=== PATIENT | male | born 1940 | race Two or more races ===

== ENCOUNTER 2025-08-22 20:50 | Inpatient (IN) | payer MEDICARE, OTHER ==
[~2025-08-22] VITALS: Ht 157.5 cm; Wt 66.2 kg
[2025-08-22 22:00] LABS: PLATELET COUNT (AUTO) 196 K/uL (152-348); RED BLOOD CELL COUNT(AUTO) 4.47 MIL/uL (4.06-5.63); RED CELL DISTRIBUTION WIDTH 13.7 % (12.1-16.2); WHITE BLOOD COUNT (AUTO) 6.2 K/uL (3.6-10.2)
[2025-08-22 22:08] LABS: CREATININE 1.1 mg/dL (0.6-1.3); SODIUM SERUM 145 mmol/L (136-145); UREA NITROGEN, BLOOD 23 mg/dL (7-18)
[2025-08-22 22:14] LABS: ASPARTATE AMINOTRANSFERASE 17 U/L (15-37); TOTAL PROTEIN, SERUM 7.5 g/dL (6.4-8.2)
[2025-08-22 23:00] VITALS: O2SAT 94
[2025-08-22 23:00] LABS: ABG BASE EXCESS 0.2 mmol/L (-2.0-3.0); ABG HCO3 24.6 mmol/L (21.0-28.0); ABG PCO2 39.2 mmHg (35.0-48.0); ABG PH 7.415 (7.350-7.450); ABG PO2 64.2 mmHg (83.0-108.0); ABG SITE LEFT RADIAL; ABG TOTAL HEMOGLOBIN 14.8 G/dL (13.5-17.5); AaDO2 92.9 mmHg; FIO2 21.0 %
[2025-08-22 23:15] VITALS: O2SAT 95
[2025-08-22] MEDS ORDERED: ALBUTEROL SULFATE 2.5 MG/3 ML NEBU ONE (23:32)
[2025-08-22] MEDS: ALBUTEROL SULFATE 2.5 MG/3 ML NEBU NEB ONE (23:37)
[2025-08-23] MEDS ORDERED: MAGNESIUM HYDROXIDE 30 ML LIQUID UDC PO PRN (01:30)
[2025-08-23] MEDS ORDERED: IPRATROPIUM BROMIDE 0.5 MG/2.5 ML NEBU NEB PRN (01:30)
[2025-08-23] MEDS ORDERED: ONDANSETRON 4 MG/2 ML VIAL IV PRN (01:30)
[2025-08-23] MEDS ORDERED: REMEDY ESSENTIAL ZINC PASTE 113 GM TP PRN (01:30)
[2025-08-23] MEDS ORDERED: ACETAMINOPHEN 325 MG TABLET PO PRN (01:30)
[2025-08-23] MEDS ORDERED: ALBUTEROL SULFATE 2.5 MG/ 0.5 ML NEBU NEB PRN (01:30)
[2025-08-23 03:00] VITALS: BP 125/75
[2025-08-23] MEDS: ENOXAPARIN SODIUM 40 MG/0.4 ML DISP.SYRIN SQ SCH (03:46)
[2025-08-23 04:33] VITALS: BP 131/61; TEMP 97.8; O2SAT 97
[2025-08-23] MEDS: PANTOPRAZOLE SODIUM 40 MG TABLET.DR PO SCH (06:26)
[2025-08-23 08:00] VITALS: BP 120/68; TEMP 97.7; O2SAT 97
[2025-08-23 08:30] LABS: PLATELET COUNT (AUTO) 177 K/uL (152-348); RED BLOOD CELL COUNT(AUTO) 4.75 MIL/uL (4.06-5.63); RED CELL DISTRIBUTION WIDTH 13.5 % (12.1-16.2); WHITE BLOOD COUNT (AUTO) 5.0 K/uL (3.6-10.2)
[2025-08-23 08:38] LABS: CREATININE 1.0 mg/dL (0.6-1.3); SODIUM SERUM 143 mmol/L (136-145); UREA NITROGEN, BLOOD 21 mg/dL (7-18)
[2025-08-23] MEDS ORDERED: ALBUTEROL SULFATE 8 GM HFA.AER.AD IH PRN (10:30)
[2025-08-23] MEDS ORDERED: MORPHINE SULFATE 2 MG/1 ML DISP.SYRIN IVP PRN (10:30)
[2025-08-23] MEDS ORDERED: ALBUTEROL SULFATE 2.5 MG/3 ML NEBU NEB PRN (10:45)
[2025-08-23] MEDS: HEPARIN SODIUM,PORCINE 5,000 UNITS/ML VIAL SQ SCH (11:03)
[2025-08-23 12:00] VITALS: BP 115/52; TEMP 97.6; O2SAT 96
[2025-08-23] MEDS ORDERED: PROP60CA38 PO (12:43)
[2025-08-23] MEDS ORDERED: [UNRECOGNIZED DRUG - OTHER] EACHEYE (12:44)
[2025-08-23] MEDS ORDERED: PROM6.256 PO (12:45)
[2025-08-23] MEDS ORDERED: MEMA10TA PO (12:45)
[2025-08-23] MEDS ORDERED: MELO-105 PO (12:46)
[2025-08-23] MEDS ORDERED: TAMS-3 PO (12:47)
[2025-08-23] MEDS ORDERED: AMLO-212 PO (12:47)
[2025-08-23 16:00] VITALS: BP 127/58; TEMP 97.5; O2SAT 97
[2025-08-23 20:00] VITALS: BP 117/61; TEMP 97.9; O2SAT 97
[2025-08-24 00:09] VITALS: O2SAT 95
[2025-08-24 06:04] VITALS: BP 121/57; TEMP 98.5; O2SAT 96
[2025-08-24 06:41] LABS: PLATELET COUNT (AUTO) 185 K/uL (152-348); RED BLOOD CELL COUNT(AUTO) 4.27 MIL/uL (4.06-5.63); RED CELL DISTRIBUTION WIDTH 13.9 % (12.1-16.2); WHITE BLOOD COUNT (AUTO) 9.0 K/uL (3.6-10.2)
[2025-08-24 07:05] LABS: CREATININE 0.9 mg/dL (0.6-1.3); SODIUM SERUM 144 mmol/L (136-145); UREA NITROGEN, BLOOD 20 mg/dL (7-18)
[2025-08-24] MEDS ORDERED: ALBU8.5H8 INH (08:23)
[2025-08-24] MEDS ORDERED: PRED20TA PO (08:23)
[2025-08-24 10:49] VITALS: BP 128/64; TEMP 97.6; O2SAT 97
== END 2025-08-24 11:50 | disposition home or self-care (01) | DRG 202 ==
LOC: ER 20:52 → TELE3 08-23 02:43 → MEDSURG3 08-23 14:03
PROVIDERS: ADMIT Registered Nurse Psychiatric/Mental Health; ATTEND Internal Medicine
DX: J20.8 Acute bronchitis due to other specified organisms (principal); J44.0 Chronic obstructive pulmonary disease with (acute) lower respiratory infection; R79.89 Other specified abnormal findings of blood chemistry
CPT/HCPCS: 36415; 36600; 71045; 83735; 84100; 84484; 85025; 93307; A4606; A4663; G0378; J1644; J1650; J1956; J2919; J7512